=== PATIENT | female | born 1955 | race Caucasian/White ===

== ENCOUNTER → 2020-03-27 14:49 | Outpatient (CLI) | payer BC, SELFPAY ==
--- NOTE | ~2020-03-27 | XR_ITS ---
XR lumbar spine 2-3V DATE: 03/27/2020 15:44 INDICATION: Low back pain. Bilateral knee pain. TECHNIQUE: AP, lateral, coned lateral lumbosacral views COMPARISON: None FINDINGS: There is mild levoscoliosis of the lumbar spine. There is diffuse osteopenia. There is degenerative disc disease at multiple levels, severe at L2-3, moderately severe at L3-4, L4- 5. No fracture or bone destruction or spondylolisthesis is evident. The sacroiliac joints are unremarkable. IMPRESSION: Diffuse osteopenia Mild levoscoliosis Multilevel degenerative disc disease, most severe at L2-3, moderately severe at L3-4, L4-5 Reviewed, dictated and finalized at location B.
--- NOTE | ~2020-03-27 | XR_ITS ---
EXAMINATION: XR knee LT min 4V DATE: 03/27/2020 15:44 INDICATION: Left knee pain. TECHNIQUE: 4 views of left knee were obtained. COMPARISON: None. FINDINGS: Bone alignment is normal. No fracture. There is mild osteoarthritis of medial and patellofe moral compartments characterized by tiny marginal osteophytes. No knee joint effusion. IMPRESSION: 1. Mild left knee osteoarthritis. Reviewed, dictated and finalized at location A.
--- NOTE | ~2020-03-27 | XR_ITS ---
EXAMINATION: XR knee RT min 4V DATE: 03/27/2020 15:44 INDICATION: Right knee pain. TECHNIQUE: 4 views of right knee were obtained. COMPARISON: None. FINDINGS: Bone alignment is normal. No fracture. There is mild tricompartmental osteoarthritis charac terized by tiny marginal osteophytes. No knee joint effusion. IMPRESSION: 1. Mild right knee osteoarthritis. Reviewed, dictated and finalized at location A.
== END ==
DX: M85.88 Other specified disorders of bone density and structure, other site (principal); M51.36 Other intervertebral disc degeneration, lumbar region; M17.0 Bilateral primary osteoarthritis of knee
CPT/HCPCS: 72100; 73564